=== PATIENT | male | born 1985 | race Caucasian/White ===

== ENCOUNTER 2024-07-28 05:38 | Inpatient (IN) | payer BC, SELFPAY ==
[2024-07-28] VITALS (24 sets, daily range): BP systolic 93–136; BP diastolic 61–100; BMI 25.8
[2024-07-28] MEDS: LOW STRENGTH ASPIRIN 324 MG PO (03:58)
[2024-07-28] MEDS: BRILINTA 180 MG PO (03:59)
[2024-07-28] MEDS: HEPARIN 4000 UNITS IV (04:02)
--- NOTE | 2024-07-28 04:09 | ED.GENMED ---
History of Present Illness
General
Chief Complaint: Chest Pain
Source: patient
Time Seen by Provider: 07/28/24 04:08
Nursing documentation reviewed up to this point in time: agreed with
History of Present Illness
History of Present Illness:
STEMI ALERT called at 0352
Note:
CHIEF COMPLAINT(S)
Chest pain.
HISTORY OF PRESENT ILLNESS
The patient is a 39-year-old male who presented to the emergency department with chest pain which started at 2 a.m., waking him from sleep. He describes the pain as dull, coming and going every 20 minutes, and reported that it was more severe five
minutes before arrival. The chest pain radiated to the arm, primarily localized to the chest, and did not exhibit diaphoresis. He rated the chest pain as a 4 out of 10 on arrival, which later decreased to a 2. The pain was initially waxing and
waning before becoming a steady dull ache. The patient has never experienced chest pain of this nature before. He drove himself to the hospital and mentioned light packing for a trip the previous day as the only recent exertional activity.
ADDITIONAL HISTORY OBTAINED FROM SOURCES OTHER THAN THE PATIENT
None provided.
EXTERNAL RECORDS REVIEWED
None provided.
CHRONIC MEDICAL CONDITIONS SIGNIFICANTLY AFFECTING CARE
The patient has a history of slightly elevated cholesterol.
SOCIAL DETERMINANTS AFFECTING HEALTH
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
MEDICATIONS
The patient is on an unspecified allergy medication for hay fever. He does not take other medications regularly.
REVIEW OF SYSTEMS
- Cardiovascular: Described intermittent chest pain radiating to the arm. No prior similar episodes reported.
- Respiratory: Possible shortness of breath before arrival for the current episode. No baseline shortness of breath.
- General: No seizures or fainting reported. Patient appears pale and in visible distress.
PHYSICAL EXAM
- General: The patient appears pale and slightly distressed.
- Cardiovascular: Discussed suspected ST-Elevation Myocardial Infarction (STEMI) with zigzag stitcher and ongoing evaluation for potential heart attack.
- Respiratory: No significant respiratory distress noted upon evaluation.
Nursing notes and vital signs reviewed.
PROBLEM LIST
Acute:
1. Chest pain, suspected myocardial ischemia.
PLAN
1. Administered aspirin and Brilinta.
2. Administered 4,000 units of heparin.
3. Coordinated with senior compliance analyst for potential catheterization lab evaluation.
4. Performed electrocardiogram (EKG) for further assessment of cardiac status.
5. Patient advised about the potential cardiac causes and informed about further evaluation with senior compliance analyst.
DIFFERENTIAL DIAGNOSIS
The Differential Diagnosis includes, in no particular order and is not limited to:
1. Myocardial infarction
2. Angina pectoris
3. Gastroesophageal reflux disease
4. Pulmonary embolism
5. Aortic dissection
6. Pericarditis
7. Musculoskeletal chest pain
8. Pneumothorax
9. Pleuritis
10. Anxiety-related chest pain
CARE-UPDATE
07/28/24 - 04:09
Patient experienced mild chest pressure rated at 2/10 following administration of heparin, Brilinta, or aspirin. Continue monitoring symptoms and assess for potential medication-related side effects.
CARE-UPDATE
07/28/24 - :12
Patients color has improved, and the intensity of chest pain is currently rated at a 3, exhibiting some fluctuation. No radiation of pain is reported. No leg swelling observed on examination. The patient experienced a slight increase in chest
pressure during the last mile of travel. Reports slight numbness in the left arm, not described as pain. No nausea or difficulty driving until nearing the destination.
CARE-UPDATE
07/28/24 - :15
After administration of one nitroglycerin, patients pain level decreased to 2/10, indicating significant improvement. Plan to reassess for potential administration of an additional dose pending stability of blood pressure.
Review of Systems
Review of Systems
Allergies reviewed?: Yes
All Other Systems: ROS reviewed and negative except as documented in HPI and ROS
Cardiac: Reports chest pain
Phy Exam
Physical Exam
Physical Exam:
.
Scores
Heart Score for Chest Pain Patients
STEMI patient?: Yes
Course
Orders/Labs/Results
Orders:
Orders
07/28/24 03:48
EKG [Electrocardiogram (*1)] Urgent
Reason for Study: Chest Pain
EKG- Treatment ONCE
07/28/24 03:58
Aspirin Chewable [Low Strength Aspirin] 324 mg PO NOW STA
07/28/24 03:59
Ticagrelor [Brilinta] 180 mg PO ONCE ONE
07/28/24 04:01
Heparin 4,000 units IV NOW STA
07/28/24 04:02
EKG [Electrocardiogram (*1)] Urgent
Reason for Study: Chest Pain
EKG- Treatment ONCE
07/28/24 04:05
Complete Blood Count/With Diff Urgent
Comprehensive Metabolic Panel Urgent
PT/INR [Prothrombin Time] Urgent
PTT Urgent
Troponin I Urgent
07/28/24 04:13
Nitroglycerin Sublingual [Nitrostat (Sublingual)] 0.4 mg SL NOW STA
07/28/24 04:20
Nitroglycerin Sublingual [Nitrostat (Sublingual)] 0.4 mg SL NOW STA
07/28/24 05:16
Admit Patient As Directed
Co-Sign Provider:
Level of Care: Inpatient admission
Assign to:: IVU
Physician / Group: Roland
Diagnosis: STEMI Anterior
Patient Condition: Good
Reason for Hospitalization: Anterior STEMI
Expected length of stay greater than two midnights?: Yes
ELOS- Estimated Length of Stay in days: 2
I certify the patient meets the requirements for IP care: Yes
Code Status As Directed
Resuscitation Status: Full Code
CARDIAC REHAB CONSULT Routine
Co-Sign Provider:
Cardiac Rehab & Exercise Evaluation Referral
Type of Cardiac Rehab Referral: Outpatient
Diagnosis: STEMI
Date of Diagnosis/Surgery:
Referring Provider: Seamus Watkins
Jun Outpatient Intensive Cardiac Rehab Exercise Prescription
The above named person is capable of participating in an intensive cardiac rehab exercise therapy program
under the guidance of the [facility] cardiac rehab staff, outpatient registered dieticians and
supervision of a physician.
ICR Program Objectives:
Provide supervised exercise, cooking classes, nutritional counseling and healthy mind-set education to
improve the function/symptom free work capacity to an optimal level as well as control risk factors to
prevent the progression of heart disease. During the supervised exercise therapy session some or all of
the following may be included in the cardiac rehab session: ECG telemetry, BP, heart rate, rate of
perceived exertion, symptoms/tolerance, cholesterol testing and education. Exercise modalities may
include: treadmill, upright or recumbent bike, spin bike, rowing machine, elliptical, recumbent
elliptical, arm-bike machine, recumbent stepper and free weights.
Intensity:
All CR staff will use ACSM guidelines: Most patients will exercise in the following range: Heart Rate
Palmer range of 40% to 80% & Oxygen Uptake reserve range 40-80% (VO2R). Peak heart rate and VO2 are
derived from the cardiac rehab submaximal graded exercise test at RPE of 13/14 out of 20. Initial
intensity range: RPE 11 to 14/20 and may expand to 11 to 16/20.
Duration & Frequency:
If appropriate the patient will be progressed up to 40 minutes of exercise therapy. Patients will be
instructed to come three times a week in cardiac rehab and at a home/other gym to achieve optimal
physical activity/exercies i.e. 4000-10,000 steps per day.
Education:
The patient will receive one-on-one education during their orientation, initial exercise evaluation, ITP
reassessments and discharge session. Each exercise session will also include an education class (30-40
minutes).
Acetaminophen [Tylenol] 650 mg PO Q4HPRN PRN
Activity As Directed
Activity Level: Out of Bed- Chair
Comment: bed/chair rest for 2 hours then out of bed ad petros
Hose Mender Procedure As Directed
Cardiac Cath Procedure: percutaneous coronary intervention
Intake/ Output As Directed
Frequency: Per unit guidelines
Notify MD As Directed
Notify physician if: immediately for chest pain or bleeding from access site(s)
Radial Artery Hemostasis Method As Directed
Instructions:: 3 mL out at 2 hour posts placement of band
3 mL out at 2 1/2 hours post placement of band
3 mL out at 3 hours post placement of band
Off at 3 1/2 hours post placement of band
If any oozing or hemotoma occurs:: re-inflate band and call provider
Site Checks As Directed
Check access site for bleeding/hematoma: Yes
Comment: on arrival, Q15min x4, Q30min x2, Q1 hr x2, Q2 hr x2, Q4 hr or per
protocol
Vascular Checks As Directed
Location: distal to access site - pulse check
Frequency: Other
Comment: on arrival, Q15min x4, Q30min x2, Q1 hr x2, Q2 hr x2, Q4 hr or per protocol
Vital Signs As Directed
Frequency: Other
Additional Instructions:: on arrival, Q15min x4, Q30min x2, Q1 hr x2, Q2 hr x2, then Q4 hr or per unit
protocol
PRN Pain Medication Management As Directed
May give lesser potent ordered pain med per pt: Yes
preference::
Protocol:: Medication orders for pain may be administered in a
manner that supports deferring to patient preference
when the pt is:
- Requesting an ordered lesser potent pain medication.
Least to most potent pain medications are defined
as: acetaminophen < NSAID < tramadol < opioids
(morphine, oxycodone, hydromorphone).
- Requesting a lesser dose of the same medication IF
ORDERED.
- Requesting a less intrusive route of administration
if both routes are prescribed by the provider (PO <
IV).
07/28/24 05:17
DX Deep Vein Thrombosis Video Routine
07/28/24 05:21
Echo 2D MMode Color/Doppler Routine
Reason for Study: anterior stemi
Cardiology Consult: Seamus Watkins
07/28/24 05:30
0.9% Sodium Chloride 1000 ml [Nss] 1,000 ml IV PER PROTOCOL
Infusion rate in mL/kg/hr:: 1.5
Infusion rate in mL/hr:: 113
Duration of infusion (hours):: 5
07/28/24 06:00
Electrocardiogram (*1) IN AM
Reason for Study: Other
Other Reason for Exam: s/p intervention
Cholesterol Lowering
At Your Request: Full Participation
Cholesterol Lowering: Sodium, 2 Gram
Flush (0.9% Sodium Chloride) [Flush (Nss)] See Dose Instructions IV PER PROTOCOL
07/28/24 06:18
Cardiovascular Evaluation IN AM
Glycohemoglobin (HgbA1c) Routine
Troponin I Q6H
07/28/24 08:00
Aspirin Chewable [Low Strength Aspirin] 81 mg PO DAILY
Lisinopril [Zestril] 2.5 mg PO DAILY
Pantoprazole [Protonix] 40 mg PO DAILY
07/28/24 11:58
Troponin I Q6H
07/28/24 18:00
Atorvastatin [Lipitor] 80 mg PO QPM
Enoxaparin Sodium [Lovenox] 40 mg SC QPM
07/28/24 18:12
Troponin I Q6H
07/28/24 20:00
Ticagrelor [Brilinta] 90 mg PO BID
07/29/24 06:02
Basic Metabolic Panel IN AM
Complete Blood Count/No Diff IN AM
07/29/24 08:00
Metoprolol [Lopressor] 12.5 mg PO DAILY
Abnormal Lab Results
07/28/24 07/28/24 07/28/24
04:05 04:38 04:52
Absolute Lymphs (auto) 3.9 H 10^3/uL
(1.2-3.4)
Absolute Monos (auto) 0.7 H 10^3/uL
(0.1-0.6)
Neutrophils % 41.5 L %
(42.2-75.2)
Chloride 108 H mmol/L
(98-107)
Glucose 147 H mg/dl
(70-99)
POC ACT Low Range 160 H Seconds 256 H Seconds
(116-155) (116-155)
07/28/24
05:03
Absolute Lymphs (auto)
Absolute Monos (auto)
Neutrophils %
Chloride
Glucose
POC ACT Low Range 329 H Seconds
(116-155)
07/28/24 04:05
07/28/24 04:05
Vital Signs
Initial and Last Documented VS:
Initial Vital Signs
Pulse Ox
100
07/28/24 03:55
Last Documented Vital Signs
Temp Pulse Resp BP Pulse Ox
98.9 F 80 20 112/91 97
07/29/24 11:39 07/29/24 11:37 07/29/24 11:39 07/29/24 11:37 07/29/24 11:39
*Pulse Oximetry
Patient hypoxic: no
*Critical Care Note
Total Time (30-74mins, 75-104mins- exclusive of procedures): 31 (Critical care statement: A total of 31 minutes of critical care time was provided for this patient. This time is separate from time utilized to perform the aforementioned documented
procedures. Aggregate critical care time includes only time during which I was engaged in work directl)
ED Attending Note
-
Portions of this chart may have been created with voice recognition software.� Occasional wrong word or��sound alike� substitutions may have occurred due to the inherent limitations of voice recognition software.
Discharge Plan
Departure
Patient Disposition: [facility]
Date of Disposition: 07/28/24
Time of Disposition: 04:25
Presentation/result/management discussed w/ accepting MD/DO: Hospitalist
Condition: Fair
Discharge Problem:
Chest pain, ST elevation (STEMI) myocardial infarction
Interventions
Interventions:
*Risk Screen - Suicide Last Done: 07/28/24 03:56
*General Assessment Last Done: 07/28/24 03:56
*Neglect/Abuse Screening Last Done: 07/28/24 03:56
*ED- Fall Risk Assessment Last Done: 07/28/24 04:04
*ED COVID-19 Vaccine History Last Done: 07/28/24 03:56
*Nursing Disposition Last Done: 07/28/24 04:44
ED- Cardiac Assessment Last Done: 07/28/24 03:55
Discharge Date and Time
Discharge Date/Time: 07/28/24 04:30
[2024-07-28] MEDS: NITROSTAT (SUBLINGUAL) 0.4 MG SL ×2 (04:14→04:20)
[2024-07-28 04:18] LABS: % Basophils 0.7 % (0-2); % Eosinophils 5.9 % (0-6); % Immature Granulocytes 0.2 % (0-0.5); % Lymphocytes 44.2 % (20.5-51.1); % Monocytes 7.5 % (1.7-9.3); % Neutrophils 41.5 % (42.2-75.2); Absolute Basophils 0.1 10^3/uL (0-0.2); Absolute Eosinophils 0.5 10^3/uL (0-0.7); Absolute Lymphocytes 3.9 10^3/uL (1.2-3.4); Absolute Monocytes 0.7 10^3/uL (0.1-0.6); Absolute Neutrophils 3.7 10^3/uL (1.4-6.5); Hemoglobin 15.3 g/dL (13.0-18.0); Mean Corp Hgb Conc. 34.8 g/dL (33.0-37.0); Mean Corpuscular Hgb 29.7 pg (27.0-31.0); Mean Corpuscular Volume 85.3 fL (80.0-94.0); Mean Platelet Volume 9.4 fL (7.4-10.4); Nucleated Red Blood Cells % 0 % (-); Platelet Count 266 10^3/uL (130-400); Red Blood Cell Count 5.16 10^6/uL (4.70-6.10); Red Cell Dist. Width 12.3 % (11.5-14.5); White Blood Cell Count 8.9 10^3/uL (4.8-10.8)
[2024-07-28 04:28] LABS: INR 1.01; PT 13.6 Sec (11.4-14.6)
[2024-07-28 04:29] LABS: APTT 24.3 Sec (23.4-35.0)
[2024-07-28 04:40] LABS: ALT (SGPT) 15 U/L (0-50); AST (SGOT) 20 U/L (17-59); Albumin 4.5 g/dl (3.5-5.0); Alkaline Phosphatase 70 U/L (38-126); Blood Urea Nitrogen 16 mg/dl (9-20); Calcium 9.6 mg/dl (8.4-10.2); Carbon Dioxide 23 mmol/L (22-30); Chloride 108 mmol/L (98-107); Estimated Creatinine Clearance 115 ml/min; Glucose 147 mg/dl (70-99); Sodium 140 mmol/L (135-145); Total Bilirubin 0.7 mg/dl (0.2-1.3); Total Protein 7.3 g/dl (6.3-8.2); eGFR > 60.00
[2024-07-28 04:51] LABS: Troponin I < 0.012 ng/ml
--- NOTE | 2024-07-28 05:22 | ITS.CL.CATH ---
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
Cardiac Catheterization
Procedure Report:
LEFT HEART CATH AND CORONARY INTERVENTION
Date of Procedure: July 28, 2024
Referring: [facility] Emergency Department
PROCEDURES:
1. Left heart catheterization with coronary and single-plane left ventriculography
2. Successful stenting of the mid LAD beyond the first diagonal branch with a 3.0 x 22 mm Alfredo stent that was implanted at 12 kole and postdilated with a 3.5 mm noncompliant balloon to 24 kloe proximally and 16 kole in the mid and distal portion of
the stent
INDICATION: This is a 47-year-old gentleman with no prior cardiac history who awoke this morning following the onset of crushing substernal chest pressure. His symptoms persisted and he presented to [facility] for further evaluation. His
electrocardiogram and symptoms were consistent with an evolving anterior wall myocardial infarction and a STEMI alert was activated
ACCESS: Right radial artery, 6 [place] sheath
HEMODYNAMICS (mmHg):
AO (s/d, m) : 96/73, 85
LV (s/d) : 106/9
LVEDP : 17
CORONARY FINDINGS
Dominance: Right
LEFT MAIN: Normal
LEFT ANTERIOR DESCENDING: The LAD arises normally from the left main and runs in the anterior interventricular groove. There is a 30-40% proximal LAD stenosis. The first diagonal branch arises from the proximal third of the LAD and the mid LAD
just beyond the diagonal branch has a 95% eccentric high-grade stenosis. The remainder of the LAD has only minor irregularities in the distal vessel wraps around the apex.
CIRCUMFLEX: The circumflex is a medium caliber dominant vessel supplying a single sizable bifurcating obtuse marginal branch. Minor irregularities are noted
RIGHT CORONARY: The JR4 catheter dove deep into the right coronary artery upon cannulation. No pressure dampening. The right coronary artery is found to be a medium caliber dominant vessel with minor irregularities over its course. The PDA is a
small-medium caliber vessel that is widely patent
VENTRICULOGRAPHY: Left ventriculography is performed in an SANTOS projection. The digital single-plane left ventricular ejection fraction is estimated at 55% with mild anterolateral hypokinesis
ANGIOPLASTY PROCEDURE DETAIL: Upon review of the diagnostic catheterization films the decision was made to proceed with percutaneous revascularization of the subtotally occluded mid LAD. The patient received a 180 mg loading dose of ticagrelor in
the emergency department. The ACT was monitored closely throughout the procedure and additional intravenous heparin was administered in order to maintain a therapeutic ACT.
The origin of the left main was cannulated with a 6 Burundian XB 3.5 guide catheter and a BMW guidewire across the high-grade stenosis in the mid LAD and was advanced into the distal vessel. Direct stenting was performed with a 3.0 x 22 mm Alfredo stent
which was positioned with angiographic and fluoroscopic guidance. The stent was deployed at 16 kole before the fibrotic mid LAD stenosis was fully expanded. The stent was postdilated with a 3.5 x 12 mm NC Trek balloon at 14 kole on the distal edge
of the stent, 20 kole in the midportion of the stent, and 24 kole in the proximal stent achieving a nice angiographic result
SEDATION: 28 minutes of procedural sedation was utilized. An independent medical social consultant was present to assist with and help manage the patient's level of consciousness and physiologic status
RADIATION SUMMARY: Fluoro Time (min): 7.8, Dose (mGy): 753, DAP (Gy.cm2) : 61.8
CONCLUSIONS
1. Evolving anterior wall myocardial infarction with recannulization of occluded LAD and residual high-grade mid LAD stenosis that was successfully stented with a 3.0 x 22 mm Alfredo stent that was postdilated with a 3.5 mm noncompliant balloon as
described above
2. Preserved LV systolic function
RECOMMENDATIONS
1. Uninterrupted dual antiplatelet therapy
2. Check fasting lipid profile and initiate high intensity statin therapy
3. Will check hemoglobin A1c and continue to trend serial troponin levels
4. Check echocardiogram
5. Initiate treatment with FELIPE inhibitor and low-dose oral beta-tanisha depending on heart rate and blood pressure
Copy to: Dr. Seamus Watkins
[2024-07-28] MEDS: NSS 565 IV (05:53)
[2024-07-28 07:01] LABS: Troponin I 0.064 ng/ml
--- NOTE | 2024-07-28 07:19 | PTCARENOTE ---
Pt admitted from lab specialist to 2251, aaox3. R band to right radial intact, good pulses, denies cp. SR on the monitor, HR 80's. O2 sat 99% RA, lungs clear to auscultation. Call carroll within reach.
[2024-07-28 07:36] LABS: HDL Cholesterol 60 mg/dl; LDL Cholesterol, Calculated 134 mg/dl; Total Cholesterol 205 mg/dl (50-199); Triglyceride 58 mg/dl (10-149); Very Low Density Lipoprotein 11 mg/dl (0-30)
[2024-07-28 09:06] LABS: Glycohemoglobin (HgbA1c) 5.4 % (4.0-5.6)
[2024-07-28] MEDS: ZESTRIL 2.5 MG PO (09:18)
[2024-07-28] MEDS: LOW STRENGTH ASPIRIN 81 MG PO (09:18)
[2024-07-28] MEDS: PROTONIX 40 MG PO (09:18)
[2024-07-28 09:23] LABS: ACT-LR - POC 329 Seconds (116-155)
[2024-07-28 09:23] LABS: ACT-LR - POC 256 Seconds (116-155)
[2024-07-28 09:23] LABS: ACT-LR - POC 160 Seconds (116-155)
--- NOTE | 2024-07-28 09:35 | PTCARENOTE ---
Assumed care at 0700. Patient awake and alert, denies pain or shortness of breath. NSR, BP 123/95, POX 98%. Right radial band removed at 0923, dry sterile dressing replaced. IV fluids completed and capped. at bedside, call carroll in reach
--- NOTE | 2024-07-28 10:57 | CM ---
Addendum entered by Delores Mena 07/28/24 11:17:
Met with Mr, and Mrs. Mcginnis to review co-pay. He is agreeable to the co-pay for Generic, (Ticagrelor).
Original Note:
Reviewed chart. Met with and Mrs. Mcginnis to review discharge plans. He states prior to admission he resides with his spouse in a one story home with one step to enter. He states he has a full flight of steps to get to the finished basement. He
states prior to admission he was independent with ambulation and adls. He states he does not have any DME in the home. He states he has a prescription plan and uses [facility]. Telephone call to [facility], ([phone]) to check
on co-pay for Brilinta. His co-pay for Generic (Ticagrelor) is $42.41 a month and Brand name Brilinta is $414.65. Telephone call to [facility] to see if they have Ticagrelor generic in stock and they have it in stock. Medical work-up in
progress. The discharge plan is to return home with his spouse when medically stable.
[2024-07-28 13:00] LABS: Troponin I 0.154 ng/ml
[2024-07-28] MEDS: LOVENOX 40 MG SC (18:12)
[2024-07-28] MEDS: LIPITOR 80 MG PO (18:12)
--- NOTE | 2024-07-28 18:25 | PTCARENOTE ---
Patient with no complaints during the day, VSS, NSR at rest, ST with ambulation. Walking in halls. Right radial site CDI, troponin collected, call carroll in reach
[2024-07-28 18:53] LABS: Troponin I 0.515 ng/ml
[2024-07-28] MEDS: BRILINTA 90 MG PO (19:33)
--- NOTE | 2024-07-28 22:52 | PTCARENOTE ---
Patient received at change of shift resting in the bed. Right radial puncture site with gauze and tegaderm C/D/I, radial pulse palpable. Discussed activity restrictions regarding RUE following cath procedure. The patient denies chest pain and/or
shortness of breath. Offers no complaints at this time. Discussed Brilinta. Sinus rhythm on telemetry. Oxygen saturation on room air 99-100%. Plan of care discussed. Call carroll within reach. Care ongoing
[2024-07-29 01:00] LABS: Troponin I 0.749 ng/ml
[2024-07-29 03:57] VITALS: BP 116/86
[2024-07-29 06:20] LABS: Hemoglobin 15.5 g/dL (13.0-18.0); Mean Corp Hgb Conc. 34.4 g/dL (33.0-37.0); Mean Corpuscular Hgb 29.3 pg (27.0-31.0); Mean Corpuscular Volume 85.1 fL (80.0-94.0); Mean Platelet Volume 9.2 fL (7.4-10.4); Platelet Count 248 10^3/uL (130-400); Red Blood Cell Count 5.29 10^6/uL (4.70-6.10); Red Cell Dist. Width 12.5 % (11.5-14.5); White Blood Cell Count 6.9 10^3/uL (4.8-10.8)
[2024-07-29 06:41] LABS: Troponin I 0.634 ng/ml
[2024-07-29 06:42] LABS: Blood Urea Nitrogen 13 mg/dl (9-20); Calcium 9.9 mg/dl (8.4-10.2); Carbon Dioxide 27 mmol/L (22-30); Chloride 106 mmol/L (98-107); Estimated Creatinine Clearance 115 ml/min; Glucose 105 mg/dl (70-99); Potassium 4.3 mmol/L (3.5-5.1); Sodium 139 mmol/L (135-145); eGFR > 60.00
[2024-07-29 07:53] VITALS: BP 115/92
[2024-07-29 08:27] VITALS: BP 123/90
[2024-07-29] MEDS: BRILINTA 90 MG PO (08:27)
[2024-07-29] MEDS: ZESTRIL 2.5 MG PO (08:27)
[2024-07-29] MEDS: LOPRESSOR 12.5 MG PO (08:27)
[2024-07-29] MEDS: LOW STRENGTH ASPIRIN 81 MG PO (08:27)
[2024-07-29] MEDS: PROTONIX 40 MG PO (08:27)
--- NOTE | 2024-07-29 08:43 | PTCARENOTE ---
Assumed care. Patient is chest pain free, ST HR 104, BP 123/92. Right radial dressing removed open to air, call carroll in reach
--- NOTE | 2024-07-29 09:01 | W.PN.CARDCBS ---
Addendum entered and electronically signed by Seamus Langley MD 07/29/24 10:24:
39-year-old man with no past medical history presented yesterday with anterior OR, had 30 to 40% proximal LAD stenosis, 95% mid LAD stenosis with minor luminal irregularities in circumflex and RCA, EF 55%, 3.0 x 22 Alfredo stents
Medications: Subcu Lovenox, aspirin 81 mg a day, ticagrelor 90 mg twice daily, atorvastatin 80 mg a day, lisinopril 2.5 mg daily, metoprolol tartrate 12.5 mg daily, pantoprazole 40 mg a day
116/86, pulse 98, respirations 20, afebrile, head neck exam unremarkable, lungs are clear, regular rate and rhythm, no obvious murmurs abdomen benign extremities without clubbing cyanosis or edema distal pulses intact, right wrist intact
ECG: Sinus rhythm nonspecific ST and T changes
Lipids, LP(a): Pending
Echo: EF 55-60% mild anteroseptal hypokinesis, no significant valvular heart disease
Hemoglobin 15.5, BUN/creatinine 13 and 0.8, peak troponin 0.749
Impression:
Aborted anterior STEMI
Status post LAD PCI
Lipids pending, LP(a) pending
Presumed hypercholesterolemia
Plan:
He looks remarkably well.
Okay for discharge.
We will arrange for cardiac follow-up,, etc.
Original Note:
Today's Communication / Plan
-
continue post OR care
oob ambulate
poss home later today vs tomorrow
Impression / Plan
-
PCP: None
CDY: Dr. Watkins (new to pt)
39-year-old gentleman with no prior cardiac history who awoke this morning following the onset of crushing substernal chest pressure. His symptoms persisted and he presented to [facility] for further evaluation. His electrocardiogram and symptoms were
consistent with an evolving anterior wall myocardial infarction and a STEMI alert was activated. Non smoker and no family history of CAD.
Impression:
Acute anterior STEMI
post PCI LAD with 3.0 x 22 mm [place] MESERET 07/28/24
tachycardia
hyperlipidemia
h/o COVID
Plan:
post PCI LAD feels great
rad site stable
tele ST HR 85-110, no sig ectopy or arrhythmias
Echo EF 55-60% with anterior HK, mildly dil AR, no valvular disease
Troponin peaked at 0.749 and trending down
DAPT ASA/Brilinta
Will titrate metoprolol
continue lisinopril
LDL 134 continue high intensity statin, will need LFT's and lipid profile in 6-8 weeks
Cardiac rehab c/s
Activity restrictions reviewed
oob ambulate
f/u DCA in 2-4 weeks
possibly home later this afternoon if tele remains stable, wants to be at his daughters kindergarten graduation tonight
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
Subjective
Date of Service: July 29, 2024
denies cp, sob
Objective
Labs:
07/29/24 06:02
07/29/24 06:02
Labs
Hgb 15.5 g/dL (13.0-18.0) 07/29/24 06:02
Hct 45.0 % (39.0-52.0) 07/29/24 06:02
Plt Count 248 10^3/uL (130-400) 07/29/24 06:02
PT 13.6 Sec (11.4-14.6) 07/28/24 04:05
INR 1.01 07/28/24 04:05
APTT 24.3 Sec (23.4-35.0) 07/28/24 04:05
Sodium 139 mmol/L (135-145) 07/29/24 06:02
Potassium 4.3 mmol/L (3.5-5.1) 07/29/24 06:02
BUN 13 mg/dl (9-20) 07/29/24 06:02
Creatinine 0.8 mg/dL (0.7-1.3) 07/29/24 06:02
Glucose 105 mg/dl (70-99) H 07/29/24 06:02
Troponins
07/28/24 07/28/24 07/28/24
04:05 06:18 11:58
Troponin I < 0.012 0.064 H* D 0.154 H* D
07/28/24 07/29/24 07/29/24
18:12 00:07 06:02
Troponin I 0.515 H* D 0.749 H* D 0.634 H*
Vital Signs and I&O:
Vital Signs
Temp Pulse Resp BP Pulse Ox
97.9 F 104 20 123/90 97
07/29/24 07:53 07/29/24 08:27 07/29/24 07:53 07/29/24 08:27 07/29/24 07:53
Vital Signs
Temp Pulse Resp BP Pulse Ox
97.9 F 104 20 123/90 97
07/29/24 07:53 07/29/24 08:27 07/29/24 07:53 07/29/24 08:27 07/29/24 07:53
Intake & Output
07/27/24 07/28/24 07/29/24 07/30/24
06:59 06:59 06:59 06:59
Intake Total 480 / 480
Balance 480 / 480
Physical Exam
Physical Exam
NAD< AOX3
S1, S2, RRR
CTAB< non labored, no wheeze
SNTND bsx4
R rad site c/d/i non HT, good pulse
[2024-07-29 10:20] LABS: HDL Cholesterol 51 mg/dl; LDL Cholesterol, Calculated 136 mg/dl; Total Cholesterol 219 mg/dl (50-199); Triglyceride 161 mg/dl (10-149); Very Low Density Lipoprotein 32 mg/dl (0-30)
[2024-07-29 10:40] VITALS: BP 112/88
[2024-07-29] MEDS: TOPROL XL 25 MG PO (10:40)
[2024-07-29 11:37] VITALS: BP 112/91
--- NOTE | 2024-07-29 13:13 | PTCARENOTE ---
Addendum entered by Bentley Fernández RN 07/29/24 13:14:
Patient discharged to home. Teaching provided, patient verbalized understanding. IV and telemetry removed. Patient escorted to car
Original Note:
Patient discharged to home. IV and telemetry removed. Patient escorted to car
--- NOTE | 2024-07-29 13:43 | W.DS.TRANS ---
DC Summary - [employer]
-
Discharge Instructions:
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
Descending artery
Diet Low Cholesterol
Activity No strenuous activity
Additional Activity For 1 week
Driving Restrictions No driving for 24 hours
Other Services Cardiac Rehab
Instructions:
Stand-Alone Forms: DC Instructions- Cath/EP Lab
Changes to Home Medications: Yes
Discharge Medications:
DC Medications w/original date entered in [employer]
ticagrelor 90 mg tablet 90 mg PO BID #60 tabs 07/28/24
aspirin 81 mg chewable tablet 81 mg PO DAILY #1 tab 07/29/24
atorvastatin 80 mg tablet 80 mg PO QPM #90 tabs 07/29/24
lisinopril 2.5 mg tablet 2.5 mg PO DAILY #90 tabs 07/29/24
metoprolol succinate 25 mg tablet,extended release 24 hr 25 mg PO DAILY #90 tabs 07/29/24
Home Medication Changes
all meds are new
Pending Results: No
== END 2024-07-29 13:57 | disposition home or self-care (01) | DRG 322 ==
LOC: IVU 05:38
PROVIDERS: ADMITTING PHYSICIAN Internal Medicine Interventional Cardiology; EMERGENCY PHYSICIAN Student in an Organized Health Care Education/Training Program
PROC: B2111ZZ Fluoroscopy of Multiple Coronary Arteries using Low Osmolar Contrast (ICD-10-PCS; 2024-07-28)
PROC: 4A023N7 Measurement of Cardiac Sampling and Pressure, Left Heart, Percutaneous Approach (ICD-10-PCS; 2024-07-28)
PROC: B2151ZZ Fluoroscopy of Left Heart using Low Osmolar Contrast (ICD-10-PCS; 2024-07-28)
PROC: 027034Z Dilation of Coronary Artery, One Artery with Drug-eluting Intraluminal Device, Percutaneous Approach (ICD-10-PCS; 2024-07-28)
DX: I21.09 ST elevation (STEMI) myocardial infarction involving other coronary artery of anterior wall (principal); Z86.16 Personal history of COVID-19; I77.810 Thoracic aortic ectasia; I25.10 Atherosclerotic heart disease of native coronary artery without angina pectoris; E78.00 Pure hypercholesterolemia, unspecified; Z79.899 Other long term (current) drug therapy
CPT/HCPCS: 80048; 80053; 80061; 83036; 84484; 85025; 85027; 85347; 85610; 85730; 93005; 93306; 93458; 96374; 99152; 99153; 99291; C1725; C1769; C1874; C1887; C1894; C9606; Q9967

== ENCOUNTER 2024-09-15 08:43 | Outpatient (RCR) | payer BC, SELFPAY | END 2024-09-15 23:59 | disposition home or self-care (01) | LOC: CRHB 08:43 | PROVIDERS: ATTENDING PHYSICIAN Internal Medicine Interventional Cardiology | DX: I25.10 Atherosclerotic heart disease of native coronary artery without angina pectoris (principal); I25.2 Old myocardial infarction; Z95.5 Presence of coronary angioplasty implant and graft | CPT/HCPCS: 93797; 93798 ==

== ENCOUNTER 2024-10-08 08:51 | Outpatient (RCR) | payer BC, SELFPAY | END 2024-10-08 23:59 | disposition home or self-care (01) | LOC: CRHB 08:51 | PROVIDERS: ATTENDING PHYSICIAN Internal Medicine Interventional Cardiology; FAMILY PHYSICIAN Family Medicine | DX: I25.10 Atherosclerotic heart disease of native coronary artery without angina pectoris (principal); Z95.5 Presence of coronary angioplasty implant and graft; I25.2 Old myocardial infarction | CPT/HCPCS: 93797; 93798; G0422 ==